=== PATIENT | male | born 2000 | race Caucasian/White ===

== ENCOUNTER 2019-12-11 12:12 | Emergency (ER) | payer MEDICAID ==
[~2019-12-11] VITALS: Ht 175.3 cm; Wt 64.7 kg
[2019-12-11 13:20] VITALS: BP 150/94
[2019-12-11 13:39] LABS: CLARITY,URINE CLEAR (Clear); COLOR,URINE YELLOW (Yellow); GLUCOSE, URINE NEGATIVE (Neg); KETONES,URINE NEGATIVE (Neg); LEUKOCYTE ESTERASE ,URINE NEGATIVE (Neg); NITRITES, URINE NEGATIVE (Neg); OCCULT BLOOD,URINE NEGATIVE (Neg); PROTEIN,URINE NEGATIVE (Neg); UROBILINOGEN,URINE 0.2 E.U/dL (0.2-1.0)
[2019-12-11 13:44] LABS: UA COLLECTION TYPE CLN CATCH MIDSTREAM
== END 2019-12-11 13:49 | disposition home or self-care (01) ==
LOC: ER 12:13
DX: R06.02 Shortness of breath (principal); R06.00 Dyspnea, unspecified; R07.89 Other chest pain; K21.9 Gastro-esophageal reflux disease without esophagitis; F17.200 Nicotine dependence, unspecified, uncomplicated; F12.90 Cannabis use, unspecified, uncomplicated
CPT/HCPCS: 71045; 81003; 93005; 99284

== ENCOUNTER 2019-12-13 11:14 | Emergency (ER) | payer MEDICAID ==
[~2019-12-13] VITALS: Ht 177.8 cm; Wt 62.6 kg
[2019-12-13 11:25] VITALS: BP 130/89
[2019-12-13] MEDS ORDERED: ACET650T11 PO (12:10)
== END 2019-12-13 12:42 | disposition home or self-care (01) ==
LOC: ER 11:15
DX: R10.11 Right upper quadrant pain (principal); R10.12 Left upper quadrant pain; R05 Cough; K21.9 Gastro-esophageal reflux disease without esophagitis; F41.9 Anxiety disorder, unspecified; F10.99 Alcohol use, unspecified with unspecified alcohol-induced disorder; Z87.891 Personal history of nicotine dependence; Z79.899 Other long term (current) drug therapy; Y90.9 Presence of alcohol in blood, level not specified
CPT/HCPCS: 99283

== ENCOUNTER 2019-12-16 08:21 | Emergency (ER) | payer MEDICAID ==
[~2019-12-16] VITALS: Ht 177.8 cm; Wt 63.0 kg
[~2019-12-16 08:21] MED LIST: ACET650T11 PO
[2019-12-16 08:29] VITALS: BP 128/68
[2019-12-16 08:57] LABS: CLARITY,URINE CLEAR (Clear); COLOR,URINE YELLOW (Yellow); GLUCOSE, URINE NEGATIVE (Neg); KETONES,URINE 15 mg/dl (Neg); LEUKOCYTE ESTERASE ,URINE NEGATIVE (Neg); NITRITES, URINE NEGATIVE (Neg); OCCULT BLOOD,URINE SMALL (Neg); PROTEIN,URINE NEGATIVE (Neg); UROBILINOGEN,URINE 0.2 E.U/dL (0.2-1.0)
[2019-12-16 09:03] LABS: UA COLLECTION TYPE CLN CATCH MIDSTREAM
[2019-12-16 09:19] LABS: BACTERIA,URINE 1+ /HPF (Neg); MUCUS STRANDS FEW /LPF (Neg); RBC,URINE 0-2 /HPF (0-2); SQUAMOUS EPITHELIAL CELL,UR FEW /LPF (FEW); WBC,URINE 0-4 /HPF (0-4)
[2019-12-16 09:24] LABS: BASOPHILS # (AUTO) 0.1 X10'3 (0-0.2); BASOPHILS % (AUTO) 1.2 % (0-1); EOSINOPHILS # (AUTO) 0.1 X10'3 (0-0.9); EOSINOPHILS % (AUTO) 1.8 % (0-6); HEMATOCRIT 46.6 % (42.0-52.0); LYMPHOCYTES # (AUTO) 2.1 X10'3 (1.1-4.8); LYMPHOCYTES % (AUTO) 42.8 % (21-51); MEAN CORPUSCULAR HGB CONC 34.4 g/dL (33.0-36.5); MEAN CORPUSCULAR VOLUME 93.2 FL (78-98); MEAN PLATELET VOLUME 8.3 FL (7.4-10.4); MONOCYTES # (AUTO) 0.4 X10'3 (0-0.9); NEUTROPHILS # (AUTO) 2.3 X10'3 (1.8-7.7); NEUTROPHILS % (AUTO) 46.2 % (42-75); PLATELET COUNT 216 X10'3 (140-440); RED BLOOD COUNT 5.01 X10'6 (4.70-6.10); RED CELL DISTRIBUTION WIDTH 12.1 % (11.5-14.5); WHITE BLOOD COUNT 4.9 X10'3 (4.5-11.0)
[2019-12-16 09:39] LABS: ALANINE AMINOTRANSFERASE 17 U/L (12-78); ALBUMIN 4.9 G/DL (3.4-5.0); ALBUMIN/GLOBULIN RATIO 1.5 (1.1-1.5); ALKALINE PHOSPHATASE 92 IU/L (20-180); ANION GAP 10 (8-16); ASPARTATE AMINO TRANSFERASE 15 U/L (10-37); BILIRUBIN,TOTAL 0.7 MG/DL (0.1-1.0); BLOOD UREA NITROGEN 12 MG/DL (7-18); BUN/CREATININE RATIO 12.5 (5.4-32.0); CALCIUM 8.8 MG/DL (8.5-10.1); CHLORIDE 105 MMOL/L (99-107); CREATININE 0.96 MG/DL (0.60-1.10); GLUCOSE 92 MG/DL (70-104); LIPASE 87 U/L (73-393); POTASSIUM 3.6 MMOL/L (3.5-5.1); SODIUM 142 MMOL/L (135-145); TOTAL CARBON DIOXIDE 27.4 MMOL/L (24-32); TOTAL PROTEIN 8.1 G/DL (6.4-8.2); eGFR > 90 ML/MIN
== END 2019-12-16 10:00 | disposition home or self-care (01) ==
LOC: ER 08:21
DX: R10.9 Unspecified abdominal pain (principal); K59.00 Constipation, unspecified; R06.00 Dyspnea, unspecified; K21.9 Gastro-esophageal reflux disease without esophagitis; F41.9 Anxiety disorder, unspecified; F10.99 Alcohol use, unspecified with unspecified alcohol-induced disorder; F12.90 Cannabis use, unspecified, uncomplicated; F17.210 Nicotine dependence, cigarettes, uncomplicated; Z79.899 Other long term (current) drug therapy; Y90.9 Presence of alcohol in blood, level not specified
CPT/HCPCS: 36415; 74176; 80053; 81001; 83690; 85025; 99284

== ENCOUNTER 2019-12-18 14:07 | Emergency (ER) | payer MEDICAID ==
[~2019-12-18] VITALS: Ht 177.8 cm; Wt 62.7 kg
[2019-12-18 14:10] VITALS: BP 130/79
[2019-12-18] MEDS ORDERED: LORazepam 1 MG tablet PO ONE (14:50)
[2019-12-18] MEDS ORDERED: ketorolac trometh. 30mg/ml inj. IM ONE (14:50)
[2019-12-18] MEDS ORDERED: ondansetron 4mg rapidly disintigrating tab PO ONE (14:50)
[2019-12-18] MEDS ORDERED: LIDOcaine 5% patch TP SCH (14:50)
== END 2019-12-18 15:17 | disposition home or self-care (01) ==
LOC: ER 14:07
DX: R10.9 Unspecified abdominal pain (principal); K21.9 Gastro-esophageal reflux disease without esophagitis; F41.9 Anxiety disorder, unspecified; F10.99 Alcohol use, unspecified with unspecified alcohol-induced disorder; F12.90 Cannabis use, unspecified, uncomplicated; Z79.899 Other long term (current) drug therapy; Y90.9 Presence of alcohol in blood, level not specified
CPT/HCPCS: 96372; 99284; J1885

== ENCOUNTER 2019-12-29 11:53 | Emergency (ER) | payer MEDICAID ==
[~2019-12-29] VITALS: Ht 177.8 cm; Wt 63.6 kg
--- NOTE | 2019-12-29 11:54 | NUR ---
PT. WAS BROUGHT INTO THE ER BY NO 5150 CHARLY BECAUSE PT. WAS AT [facility] AND SAID HE WAS NOT GETTING ANY SERVICES. SINCE HE CALLED AND ASKED FOR HELP, THE OFFICER DID NOT WRITE A 5150. HE ASKE THE OFFICER TO BRING HIM TO [facility]
[2019-12-29 12:48] LABS: CLARITY,URINE CLEAR (Clear); COLOR,URINE YELLOW (Yellow); GLUCOSE, URINE NEGATIVE (Neg); KETONES,URINE NEGATIVE (Neg); LEUKOCYTE ESTERASE ,URINE NEGATIVE (Neg); NITRITES, URINE NEGATIVE (Neg); OCCULT BLOOD,URINE NEGATIVE (Neg); PH,URINE 7.5 (4.8-8.0); PROTEIN,URINE NEGATIVE (Neg); UROBILINOGEN,URINE 0.2 E.U/dL (0.2-1.0)
[2019-12-29 12:51] LABS: UA COLLECTION TYPE CLN CATCH MIDSTREAM
[2019-12-29 12:53] LABS: URINE AMPHETAMINE SCREEN NEGATIVE (Neg); URINE BARBITUATE SCREEN NEGATIVE (Neg); URINE BENZODIAZEPINES SCREEN NEGATIVE (Neg); URINE CANNABINOID SCREEN POSITIVE (Neg); URINE COCAINE SCREEN NEGATIVE (Neg); URINE METHADONE SCREEN NEGATIVE (Neg); URINE OPIATE SCREEN NEGATIVE (Neg); URINE PHENCYCLIDINE SCREEN NEGATIVE (Neg)
[2019-12-29 12:56] LABS: BASOPHILS % (AUTO) 0.7 % (0-1); EOSINOPHILS # (AUTO) 0.1 X10'3 (0-0.9); HEMATOCRIT 46.6 % (42.0-52.0); HEMOGLOBIN 15.8 g/dl (14.0-17.9); LYMPHOCYTES # (AUTO) 2.5 X10'3 (1.1-4.8); LYMPHOCYTES % (AUTO) 41.9 % (21-51); MEAN CORPUSCULAR HEMOGLOBIN 31.6 PG (27.0-31.0); MEAN CORPUSCULAR HGB CONC 33.9 g/dL (33.0-36.5); MEAN CORPUSCULAR VOLUME 93.1 FL (78-98); MEAN PLATELET VOLUME 8.1 FL (7.4-10.4); MONOCYTES # (AUTO) 0.6 X10'3 (0-0.9); MONOCYTES % (AUTO) 9.4 % (2-12); NEUTROPHILS # (AUTO) 2.8 X10'3 (1.8-7.7); PLATELET COUNT 260 X10'3 (140-440); RED BLOOD COUNT 5.01 X10'6 (4.70-6.10); RED CELL DISTRIBUTION WIDTH 12.6 % (11.5-14.5)
[2019-12-29 13:11] LABS: ALANINE AMINOTRANSFERASE 25 U/L (12-78); ALBUMIN 4.6 G/DL (3.4-5.0); ALBUMIN/GLOBULIN RATIO 1.4 (1.1-1.5); ALKALINE PHOSPHATASE 101 IU/L (20-180); ANION GAP 4 (8-16); ASPARTATE AMINO TRANSFERASE 15 U/L (10-37); BILIRUBIN,TOTAL 0.3 MG/DL (0.1-1.0); BLOOD UREA NITROGEN 16 MG/DL (7-18); BUN/CREATININE RATIO 19.3 (5.4-32.0); CALCIUM 9.3 MG/DL (8.5-10.1); CHLORIDE 106 MMOL/L (99-107); CREATININE 0.83 MG/DL (0.60-1.10); GLUCOSE 95 MG/DL (70-104); POTASSIUM 4.7 MMOL/L (3.5-5.1); SODIUM 140 MMOL/L (135-145); TOTAL PROTEIN 7.9 G/DL (6.4-8.2); eGFR > 90 ML/MIN
[2019-12-29 13:21] LABS: ETHANOL < 0.010 GM/DL (0.0-0.010)
--- NOTE | 2019-12-29 14:04 | NUR ---
PT SITTING UP IN BED EATING LUNCH, NO DISTRESS NOTED AT THIS TIME.
--- NOTE | 2019-12-29 15:44 | NUR ---
PACKET FAXED TO [facility]
--- NOTE | 2019-12-29 16:58 | NUR ---
PT SITTING IN BED RESTING, NO DISTRESS NOTED AT THIS TIME.
[2019-12-29] MEDS ORDERED: CHOL20004 PO (17:38)
[2019-12-29] MEDS ORDERED: IBUP-1984 PO (17:55)
[2019-12-29] MEDS ORDERED: ibuprofen tablet 400 MG TABLET PO PRN (20:00)
--- NOTE | 2019-12-29 22:51 | NUR ---
PT UP TO BR TO VOID. AMBULATING WITH STEADY GAIT. HE IS POLITE AND COOPERATIVE. ASKED IF HE NEEDS ANYTHING TO HELP HIM SLEEP. STATES "I USE BOOZE AND MARAJUANA...SINCE I WAS 15". STATES THE MED HE WAS GIVEN A FEW DAYS AGO BY HIS PSYCHIATRIST THAT WAS SUPPOSED TO MAKE HIM CALM AND REDUCE HIS ANXIETY HAD THE OPPOSITE EFFECT. SINCE HE IS NOT LONGER TAKINIG IT, HE SHOULD BE ABLE TO SLEEP. DECLINED ANY NEEDS AT THIS TIME. STATES HE GOES BY "[employer]". PT ATE ALL OF HIS DINNER. NOW LYING ON THE BED WITH BLANKET COVERING TO HIS SHOULDERS (DECLINIED ATDL BLANKETS AND STATES HE IS WARM AND ASKED IF IT WOULD BE OK IF HE TOOK HIS SOCKS OFF). HE STATED THAT TODAY WHEN HE WANTED TO SEE HIS PSYCHIATRIST AND HE COULDNT HE "JUST WANTED TO GO AND HURT SOMEONE...I JUST EXPLODED". PT IS CALM WHEN TELLING THIS STORY AND IS APPROPRIATE WITH ME.
--- NOTE | 2019-12-30 00:28 | NUR ---
PT NOW ASLEEP, LYING ON HIS LEFT SIDE WITH BLANKETS COVERING TO HIS SHOULDERS. RR 14 AND UNLABORED. SITTER AND RN WITHIN VIEW OF PT AAT.
--- NOTE | 2019-12-30 02:12 | NUR ---
Pt up to BR to void aprox 45 min ago. Reported he was sleeping well. Ambulating with steady gait. reports no current pain but states that he has been having some pain and slight swelling in his testicles over the past 3 months and taking ibuprofen for management. States he is going to see a specialist about this. Denies need for any meds at this time and states no current swelling to the area. Now back asleep.
--- NOTE | 2019-12-30 04:44 | NUR ---
Pt sleeping, lying on his back.
[2019-12-30 05:47] VITALS: BP 136/91
--- NOTE | 2019-12-30 05:58 | NUR ---
pt awakened to take am vs and inquiring about his daily dose of vitamin D, if he would receive it today. States he is recently diagnosed with low vitamin D. He has missed the dose the past few days. Med Rec reviewed by Dr. Jesus del valle to Dc this med. Pts Hx and request reviewed by Dr. Espinosa and verbal received to restart it. Pt updated .
--- NOTE | 2019-12-30 06:56 | NUR ---
PT IS AWAKE AND SITTING UP IN BED, PT WAS COMPLAINING OF SOME CHRONIC TESTICLE PAIN THAT HE HAS HAD FOR 3 MONTHS, MEDICATED [facility] IBUPROFEN, DR DECKER INFORMED OF PT COMPLAINT, PROVIDER REVIEWED LAB/UA AND JERONIMO STATES PT CAN TAKE IBUPROFEN FOR THIS CHRONIC CONDITION AND FOLLOW UP WITH PMD IF IT CONTINUES AFTER DISCHARGE HOME, NO ADDITIONAL ORDERS RECEIVED PRN IBUPROFEN ALREADY ORDERED. PT IS CALM AND COOPERATIVE DURING EVALUATION AND STAFF INTERACTION
--- NOTE | 2019-12-30 07:52 | NUR ---
DR DECKER AT BEDSIDE FOR RE-EVALUATION, PT IS CALM AND COOPERATIVE.
[2019-12-30] MEDS ORDERED: vitamin D (cholecalciferol) 1,000 unit tablet PO SCH (08:00)
[2019-12-30] MEDS ORDERED: cholecalciferol (vitamin D) 400 unit tablet PO SCH (08:00)
--- NOTE | 2019-12-30 08:21 | NUR ---
CALLED PT ANNITA PHILIP [phone] AND SHE IS OK WITH PICKING PT UP TODAY BRINGING HOME. ALSO CALLED [facility] [phone] SPOKE WITH GURPREET OFFICE RUNNER AND MADE APPOINTMENT FOR TODAY 4PM WITH PT PROVIDER JEAN VIERA, DR DECKER UPDATED TO PLAN. CALLED PT REYES AND UPDATED TO PLAN, SHE CAN HAVE HER SPOUSE WATCH BABY WHILE SHE PICKS UP PT, AND SHE AGREES SHE IS ABLE TO DROP PT OFF AT [facility] TODAY FOR APT AT 1600, DR DECKER GAVE CONTEMPORARY OR [employer]ERN [employer]ER PAPERWORK AND REVIEWED DISCHARGE PLAN WITH PT AGAIN.
== END 2019-12-30 09:15 | disposition home or self-care (01) ==
LOC: ER 11:53
DX: F17.203 Nicotine dependence unspecified, with withdrawal (principal); R45.850 Homicidal ideations; R45.1 Restlessness and agitation; K21.9 Gastro-esophageal reflux disease without esophagitis; F41.9 Anxiety disorder, unspecified; F12.90 Cannabis use, unspecified, uncomplicated; Z72.89 Other problems related to lifestyle; Z79.899 Other long term (current) drug therapy
CPT/HCPCS: 36415; 80053; 80305; 80320; 81003; 84443; 85025; 99283

== ENCOUNTER 2020-01-04 10:59 | Outpatient (CLI) | payer MEDICAID ==
[~2020-01-04 10:59] MED LIST changes: -ACET650T11 PO; +CHOL20004 PO; +IBUP-1984 PO
== END 2020-01-04 23:59 | disposition home or self-care (01) ==
LOC: RAD 10:59
PROVIDERS: ATTEND Nurse Practitioner
DX: N45.1 Epididymitis (principal)
CPT/HCPCS: 76870

== ENCOUNTER 2020-03-26 10:04 | Emergency (ER) | payer MEDICAID ==
[~2020-03-26] VITALS: Ht 177.8 cm; Wt 75.0 kg
[2020-03-26 13:14] LABS: CLARITY,URINE CLEAR (Clear); COLOR,URINE YELLOW (Yellow); GLUCOSE, URINE NEGATIVE (Neg); KETONES,URINE NEGATIVE (Neg); LEUKOCYTE ESTERASE ,URINE NEGATIVE (Neg); NITRITES, URINE NEGATIVE (Neg); OCCULT BLOOD,URINE TRACE-INTACT (Neg); PROTEIN,URINE NEGATIVE (Neg); UROBILINOGEN,URINE 0.2 E.U/dL (0.2-1.0)
[2020-03-26 13:15] LABS: UA COLLECTION TYPE VOIDED
[2020-03-26 13:27] LABS: SQUAMOUS EPITHELIAL CELL,UR NONE SEEN /LPF (FEW)
[2020-03-26 13:29] LABS: BACTERIA,URINE FEW /HPF (Neg); RBC,URINE NONE SEEN /HPF (0-2); WBC,URINE NONE SEEN /HPF (0-4)
[2020-03-26 14:12] VITALS: BP 132/92
== END 2020-03-26 14:16 | disposition home or self-care (01) ==
LOC: ER 10:04
DX: N48.89 Other specified disorders of penis (principal); R30.0 Dysuria; K21.9 Gastro-esophageal reflux disease without esophagitis; F41.9 Anxiety disorder, unspecified; F12.90 Cannabis use, unspecified, uncomplicated; Z72.89 Other problems related to lifestyle; Z79.899 Other long term (current) drug therapy
CPT/HCPCS: 81001; 99283

== ENCOUNTER 2020-04-18 19:00 | Emergency (ER) | payer MEDICAID ==
[~2020-04-18] VITALS: Ht 177.8 cm; Wt 68.2 kg
[2020-04-18 21:14] VITALS: BP 142/93
== END 2020-04-18 21:18 | disposition home or self-care (01) ==
LOC: ER 19:01
DX: M62.838 Other muscle spasm (principal); M79.605 Pain in left leg; K21.9 Gastro-esophageal reflux disease without esophagitis; F41.9 Anxiety disorder, unspecified; F12.90 Cannabis use, unspecified, uncomplicated; Z72.0 Tobacco use; Z72.89 Other problems related to lifestyle; Z79.899 Other long term (current) drug therapy
CPT/HCPCS: 99281

== ENCOUNTER 2020-12-27 12:03 | Emergency (ER) | payer MEDICAID ==
[~2020-12-27] VITALS: Ht 177.8 cm; Wt 79.5 kg
[2020-12-27 12:06] VITALS: BP 114/67
== END 2020-12-27 14:40 | disposition home or self-care (01) ==
LOC: ER 12:03
DX: S60.511A Abrasion of right hand, initial encounter (principal); M25.531 Pain in right wrist; K21.9 Gastro-esophageal reflux disease without esophagitis; F12.90 Cannabis use, unspecified, uncomplicated; Z72.89 Other problems related to lifestyle; Z79.899 Other long term (current) drug therapy; W22.8XXA Striking against or struck by other objects, initial encounter; Y93.02 Activity, running; Y92.89 Other specified places as the place of occurrence of the external cause; Y99.8 Other external cause status
CPT/HCPCS: 73110; 99284

== ENCOUNTER 2021-02-14 08:47 | Emergency (ER) | payer MEDICAID ==
[~2021-02-14] VITALS: Ht 172.7 cm; Wt 71.6 kg
[2021-02-14 08:49] VITALS: BP 126/71
== END 2021-02-14 08:59 | disposition home or self-care (01) ==
LOC: ER 08:48
DX: H92.03 Otalgia, bilateral (principal); K21.9 Gastro-esophageal reflux disease without esophagitis; F41.9 Anxiety disorder, unspecified; F17.200 Nicotine dependence, unspecified, uncomplicated; F12.90 Cannabis use, unspecified, uncomplicated; Z72.89 Other problems related to lifestyle; Z79.899 Other long term (current) drug therapy
CPT/HCPCS: 99283

== ENCOUNTER 2021-03-15 05:08 | Emergency (ER) | payer MEDICAID ==
[~2021-03-15] VITALS: Ht 177.8 cm; Wt 77.3 kg
[2021-03-15 05:09] VITALS: BP 140/93
[2021-03-15] MEDS ORDERED: ipratropium/albuterol 3ml nebule NEB ONE (05:15)
== END 2021-03-15 05:50 | disposition home or self-care (01) ==
LOC: ER 05:08
DX: R06.02 Shortness of breath (principal); F12.90 Cannabis use, unspecified, uncomplicated; K21.9 Gastro-esophageal reflux disease without esophagitis; F41.9 Anxiety disorder, unspecified; Z72.0 Tobacco use; Z72.89 Other problems related to lifestyle; Z79.899 Other long term (current) drug therapy
CPT/HCPCS: 94640; 94760; 99283; 99406

== ENCOUNTER 2022-11-07 11:21 | Emergency (ER) | payer MEDICAID ==
[~2022-11-07] VITALS: Ht 177.8 cm; Wt 70.5 kg
[2022-11-07 11:28] VITALS: BP 134/79
== END 2022-11-07 16:56 | disposition left against medical advice (07) ==
LOC: ER 11:22
DX: R51.9 Headache, unspecified (principal); Z53.21 Procedure and treatment not carried out due to patient leaving prior to being seen by health care provider